=== PATIENT | female | born 1985 | race Caucasian/White ===

== ENCOUNTER 2019-11-28 13:15 | Outpatient (CLI) | payer OTHER, SELFPAY ==
--- NOTE | ~2019-11-28 | MMUS_ITS ---
EXAMINATION: MM diagnostic stan BI w rhett, US breast LT complete HISTORY: Left breast pain. Patient recently nursing. TECHNIQUE: Additional 3-D tomosynthesis images of were performed and synthetic 2-D images were genera yajaira. CAD analysis was submitted and interpreted. High resolution left breast ultrasound was performed . COMPARISON: None FINDINGS: MAMMOGRAPHIC FINDINGS: The breasts are extremely dense, which lowers the sensitivity of mammography. There are no suspicious masses, calcifications or architectural distortion in either breast to suggest malignancy. ULTRASOUND: Normal heterogeneous echotexture of the left breast without focal solid or cystic mass. IMPRESSION: 1. No mammographic or sonographic evidence for malignancy. BI-RADS CATEGORY 1 - NEGATIVE Reviewed, dictated and finalized at location A. MATION TENDER IMPRESSION: 1. No mammographic or sonographic evidence for malignancy. BI-RADS CATEGORY 1 - NEGATIVE
== END 2019-11-28 13:16 | disposition home or self-care (01) ==
PROVIDERS: PCP Family Medicine; Visit Provider Family Medicine
DX: N64.4 Mastodynia (principal)
CPT/HCPCS: 76641; 77062; 77066; G0279

== ENCOUNTER 2020-08-28 06:52 | Outpatient (NON) | payer OTHER, SELFPAY ==
[2020-08-31 17:04] LABS: SARS-CoV-2 RNA PCR Negative
== END 2020-08-28 06:53 ==
LOC: ANHCOVIDDT 07:04
PROVIDERS: PCP Family Medicine; Visit Provider Internal Medicine
DX: Z20.828 Contact with and (suspected) exposure to other viral communicable diseases (principal); R09.89 Other specified symptoms and signs involving the circulatory and respiratory systems
CPT/HCPCS: 87635; C9803; U0003

== ENCOUNTER 2021-04-25 10:21 | Emergency (ER) | payer OTHER, SELFPAY ==
[2021-04-25 10:30] VITALS: BP 119/74; PULSE 118; RESP 16; TEMP 36.8; O2SAT 100
--- NOTE | 2021-04-25 10:49 | ED.URI ---
HPI - URI/Sore Throat General Chief Complaint: Upper Respiratory Infection Stated Complaint: sinus issues/jaw pain/teeth pain/ear pain Source: patient and RN notes reviewed Mode of arrival: ambulatory History of Present Illness HPI Narrative: This is a 35-year-old female presented to urgent care with complaints of nasal and ear congestion congestion with a runny nose mucous clear in color. According to patient approximately April 11 visited her JUNIOR ACCOUNTING CLERK who instructed her to use [id number] congestion and sinus medication for her sinus issues. Patient notes that her condition has worsened and that her cough has resolved but she continues to have a runny nose with clear fluid in her ears in head feels congested. The patient denies SOB, CP, palpitation, extremity numbness, lightheadedness, dizziness, constipation, diarrhea, chills, or fever. Patient is in her first trimester of I instructed her that she will need a antibiotic call pharmacy to verify safety of the fetus I also instructed the patient to notify her WATER PUMPER need to see if the medication will not harm her fetus. She agrees MD elicited complaint: rhinorrhea, nasal congestion and sinus pain Related Data Home Medications Medication Instructions Recorded Confirmed cetirizine [Zyrtec] 10 mg PO DAILY 08/23/19 04/25/21 multivitamin 1 tablet PO DAILY 08/23/19 04/25/21 hydrocortisone 5 mg tablet 7.5 mg PO DAILY tablet 03/16/20 04/25/21 magnesium citrate 125 mg capsule 125 mg PO DAILY 03/16/20 04/25/21 doxylamine-pyridoxine (vit B6) 1 tablet PO PRN PRN 04/25/21 04/25/21 [Abbya] Allergies Allergy/AdvReac Type Severity Reaction Status Date / Time esomeprazole Allergy Unknown Anxiety Verified 04/25/21 10:31 levofloxacin Allergy Unknown Joint pain Verified 04/25/21 10:31 chapo Allergy Unknown Hives Verified 04/25/21 10:31 propranolol AdvReac Intermediate rage, Verified 04/25/21 10:31 insomnia, joint and muscle aches. Review of Systems Review of Systems: Narrative: A 14 organ system Review of Systems was performed and pertinent positives included in the HPI, otherwise remaining ROS is negative. All systems reviewed & are unremarkable except as noted in HPI and below PMFSH Past Medical History Medical History (Updated 07/22/21 @ 11:06 by LAYNE Green) Frequent loose stools H. pylori infection Joint stiffness of multiple sites POTS (postural orthostatic tachycardia syndrome) Recurrent urticaria Seasonal allergies Surgical History Surgical History No significant past surgical history 2008 Family History Family History Mother Hypertension Family history of thyroid disease Family history of cardiovascular disease Father Family history of thyroid disease Grandparent Family history of thyroid disease Diabetes mellitus Hypertension Asthma Family history of cardiovascular disease Family history of malignant neoplasm of cervix Social History Social History Smoking status: Never smoker Second hand tobacco smoke exposure: No Alcohol intake: never Substance use: never Substance use type: does not use Gender identity (if verbalized by the patient): Female Exam Narrative: Exam Narrative: GENERAL: This is a well-nourished, well-developed patient, in no apparent distress. HEAD: normocephalic, atraumatic. maxillary area tenderness with palpation EYES: PERRL. Sclera clear/white. Vision is grossly intact. EARS: External ears normal, auditory canals clear and without drainage, TMs normal without perforation. Hearing grossly intact. NOSE: External nose normal with no obvious nasal discharge, nares without redness, no rhinorrhea. THROAT: Mucous membranes moist, posterior pharynx clear. NECK: Neck supple, non-tender without lymphadenopathy, masses or t
== END 2021-04-25 11:18 | disposition home or self-care (01) ==
PROVIDERS: Emergency Provider Nurse Practitioner; PCP Family Medicine
DX: J32.9 Chronic sinusitis, unspecified (principal)
CPT/HCPCS: 99213; G0463

== ENCOUNTER 2021-09-03 17:43 | Emergency (ER) | payer OTHER, SELFPAY ==
[2021-09-03 17:48] VITALS: BP 122/68; PULSE 102; RESP 16; TEMP 36.6; O2SAT 99
--- NOTE | 2021-09-03 17:51 | ED.URI ---
HPI - URI/Sore Throat General Chief Complaint: Upper Respiratory Infection Stated Complaint: COLD SYMPTOMS Time Seen by Provider: 09/03/21 17:51 Source: patient, RN notes reviewed and old records reviewed Mode of arrival: ambulatory Limitations: no limitations History of Present Illness HPI Narrative: 35-year-old female presents to the [facility] with complaints of sinus congestion, sneezing. Patient reports symptoms since 22 August, 12 days ago Patient is 35 weeks , tried calling OB was referred to the [facility] for her sinus pressure. MD elicited complaint: rhinorrhea, nasal congestion and sinus pain Related Data Home Medications Medication Instructions Recorded Confirmed cetirizine [Zyrtec] 10 mg PO DAILY 08/23/19 05/08/21 multivitamin 1 tablet PO DAILY 08/23/19 05/08/21 doxylamine-pyridoxine (vit B6) 1 tablet PO PRN PRN 04/25/21 05/08/21 [Bonjesta] hydrocortisone 5 mg tablet 10 mg PO DAILY tablet 05/08/21 05/08/21 fludrocortisone mg 09/03/21 Allergies Allergy/AdvReac Type Severity Reaction Status Date / Time esomeprazole Allergy Unknown Anxiety Verified 05/08/21 16:13 levofloxacin Allergy Unknown Joint pain Verified 05/08/21 16:13 chapo Allergy Unknown Hives Verified 05/08/21 16:13 propranolol AdvReac Intermediate rage, Verified 05/08/21 16:13 insomnia, joint and muscle aches. Review of Systems Review of Systems: All systems reviewed & are unremarkable except as noted in HPI and below Constitutional: Constitutional: Reports no additional constitutional complaints, Denies chills and Denies fever(s) Eyes: Eyes: Reports no additional eye complaints ENT: Reports as per HPI, Denies dysphagia, Denies dizziness, Denies epistaxis, Reports nasal congestion and Denies sore throat Cardiovascular: Cardiovascular: Reports no additional cardiovascular complaints and Denies chest pain Respiratory: Respiratory: Reports no additional respiratory complaints, Denies cough, Denies dyspnea and Denies wheezing Gastrointestinal: Gastrointestinal: Reports no additional gastrointestinal complaints, Denies abdominal pain, Denies nausea and Denies vomiting Musculoskeletal: Musculoskeletal: Reports no additional musculoskeletal complaints Integumentary/Breasts: Skin/Breast: Reports system reviewed and no additional complaints, except as docu Neurologic: Reports system reviewed and no additional complaints, except as documented Psychiatric: Psychiatric: Reports no additional psychiatric complaints Allergic/Immunologic: Allergic/Immunologic: Reports no additional allergic/immunologic complaints [facility] Past Medical History Medical History Frequent loose stools H. pylori infection Joint stiffness of multiple sites POTS (postural orthostatic tachycardia syndrome) Recurrent urticaria Seasonal allergies Sleep paralysis Surgical History Surgical History No significant past surgical history 2009 Family History Family History Mother Hypertension Family history of thyroid disease Family history of cardiovascular disease Father Family history of thyroid disease Grandparent Family history of thyroid disease Diabetes mellitus Hypertension Asthma Family history of cardiovascular disease Family history of malignant neoplasm of cervix Social History Social History Smoking status: Never smoker Second hand tobacco smoke exposure: No Alcohol intake: never Substance use: never Substance use type: does not use Gender identity (if verbalized by the patient): Female Comments At the time of my signature, I reviewed and agree with the nursing past medical, surgical, social, and family history. There is no relevant family history pertinent to the patient complaint. Exam Const: General:
[2021-09-03 17:52] VITALS: BP 122/68; PULSE 102; RESP 16; TEMP 36.6; O2SAT 99
== END 2021-09-03 18:02 | disposition home or self-care (01) ==
PROVIDERS: Emergency Provider Nurse Practitioner; PCP Family Medicine
DX: J32.9 Chronic sinusitis, unspecified (principal)
CPT/HCPCS: 99213; G0463

== ENCOUNTER 2023-02-18 22:56 | Emergency (ER) | payer OTHER, SELFPAY ==
[2023-02-18 22:53] VITALS: BP 132/76; PULSE 102; RESP 17; TEMP 36.8; O2SAT 100
[2023-02-18 23:08] VITALS: PULSE 95; RESP 17; O2SAT 100
[2023-02-18 23:27] VITALS: PULSE 95; RESP 17; O2SAT 100
[2023-02-18 23:34] VITALS: PULSE 101; RESP 19; O2SAT 100
[2023-02-18 23:45] VITALS: PULSE 94; RESP 13; O2SAT 100
[2023-02-18 23:46] VITALS: BP 125/69; PULSE 98; RESP 13; O2SAT 100
[2023-02-19] VITALS (28 sets, daily range): BP systolic 109–125; BP diastolic 63–87; PULSE 85–109; RESP 12–22; O2SAT 96–100
[2023-02-19] MEDS: FAMOTIDINE 20 MG/2 ML VIAL IV PUSH
[2023-02-19] MEDS: HYDROCORTISONE SODIUM SUCCINATE 100 MG/2 ML VIAL 20 MG IV PUSH
[2023-02-19] MEDS: ONDANSETRON INJ 4 MG/2 ML VIAL IV PUSH (00:01)
[2023-02-19] MEDS: SODIUM CHLORIDE 0.9% IV 2,000 ML 999 ML IV CONT (00:02)
--- NOTE | 2023-02-19 01:18 | ECG_ITS ---
Measurements Intervals [place] Rate: 94 P: 53 CO: 149 QRS: 75 QRSD: 78 T: 36 QT: 353 QTc: 443 Interpretive Statements SINUS RHYTHM NORMAL ECG NO PREVIOUS ECG AVAILABLE FOR COMPARISON Electronically Signed On 02-19-2023 7:44:24 CDT by Benigno Howell D.O.
[2023-02-19 01:42] LABS: Basophils Percent Auto 0.2 % (0.2-1.2); Eosinophils Percent Auto 0.1 % (0-4.4); Hemoglobin 12.6 g/dL (12.0-15.0); Immature Granulocyte Absolute 0.04 K/mm3 (0.00-0.031); Immature Granulocyte Percent A 0.3 % (0-0.5); Lymphocytes Absolute Auto 0.62 K/mm3 (0.9-3.2); Lymphocytes Percent Auto 5.1 % (18.3-44.2); Mean Corpuscular HGB Conc 34.1 g/dl (32-36); Mean Corpuscular Hemoglobin 30.2 pg (26-34); Mean Corpuscular Volume 88.7 fl (80-100); Mean Platelet Volume 8.6 fl (7.4-10.4); Monocytes Absolute Auto 0.5 K/mm3 (0.1-0.6); Neutrophils Absolute Auto 11.1 K/mm3 (1.3-6.7); Neutrophils Percent Auto 90.3 % (45.5-73.1); Platelet Count Result 266 k/mm3 (150-375); Red Blood Count 4.17 M/mm3 (4.2-5.4); Red Cell Distribution Width 12.9 % (11.5-14.5); White Blood Count 12.3 K/mm3 (4.5-10.0)
[2023-02-19 01:43] LABS: Appearance Urine Clear (Clear); Bilirubin Urine Negative (Negative); Blood Urine Negative (Negative); Color Urine Yellow (Yellow); Glucose Urine UA Negative (Negative); Ketones Urine Negative (Negative); Leukocyte Esterase Ur Negative LEU/UL (Negative); Nitrate Urine Negative (Negative); Protein Urine Negative (Negative); Specific Grav Ur 1.021 (1.001-1.035); Urobilinogen Urine 0.2 mg/dL (<2.0)
[2023-02-19 01:49] LABS: Add Urine Microscopic? NO
[2023-02-19 02:12] LABS: Alanine Aminotransferase 21 U/L (6-35); Albumin Level 3.8 g/dL (3.5-5.1); Alkaline Phosphatase 54 U/L (38-126); Anion Gap 5 mmol/L (8-16); Aspartate Amino Transferase 26 U/L (14-36); Bilirubin,Total 0.7 mg/dL (0.2-1.3); Blood Urea Nitrogen 16 mg/dL (7-17); Calcium 7.5 mg/dL (8.4-10.2); Carbon Dioxide 27 mmol/L (22-30); Chloride 106 mmol/L (98-107); Estimated Glomerular Filt Rate > 60; Glucose 97 mg/dL (65-110); Lipase 133 U/L (23-300); Magnesium 1.7 mg/dL (1.6-2.3); Potassium 3.8 mmol/L (3.4-5.0); Sodium 138 mmol/L (137-145)
[2023-02-19 02:19] LABS: Influenza A QL RT-PCR Negative (Negative); Influenza B QL RT-PCR Negative (Negative); RSV RNA, RT-PCR Negative (Negative); SARS-CoV-2 RNA PCR Negative (Negative)
--- NOTE | 2023-02-19 03:17 | ED.GENADULT ---
HPI - General Adult General Chief complaint: Nausea/Vomiting/Diarrhea Stated complaint: N/V/D Time Seen by Provider: 02/18/23 23:12 History of Present Illness HPI narrative: This is a 37-year-old female presenting ED with a chief complaint of nausea vomiting diarrhea. Started early this morning. Associated with crampy diffuse abdominal pain that has been getting better. She denies fevers, chest pain difficulty breathing or urinary symptoms. The patient has adrenal insufficiency and typically takes hydrocortisone 3 times daily at 15 mg, 10 mg and 5 mg. She tried to take a stress dose of 20 mg and was unable to keep it down without vomiting. Related Data Home Medications Medication Instructions Recorded Confirmed cetirizine 10 mg tablet (Zyrtec) 10 mg PO DAILY 08/23/19 05/08/21 multivitamin 1 tablet PO DAILY 08/23/19 05/08/21 doxylamine 20 mg-pyridoxine 20 mg 1 tablet PO PRN PRN Nausea 04/25/21 05/08/21 tablet,immediate and delayed release (Bonjesta) hydrocortisone 5 mg tablet 10 mg PO DAILY 05/08/21 05/08/21 fludrocortisone 0.1 mg tablet mg 09/03/21 Allergies Allergy/AdvReac Type Severity Reaction Status Date / Time esomeprazole Allergy Unknown Anxiety Verified 02/18/23 23:02 levofloxacin Allergy Unknown Joint pain Verified 02/18/23 23:02 chapo Allergy Unknown Hives Verified 02/18/23 23:02 propranolol AdvReac Intermediate rage, Verified 02/18/23 23:02 insomnia, joint and muscle aches. [facility] Past Medical History Medical History Frequent loose stools H. pylori infection Joint stiffness of multiple sites POTS (postural orthostatic tachycardia syndrome) Recurrent urticaria Seasonal allergies Sleep paralysis Surgical History Surgical History No significant past surgical history 2009 Family History Family History Mother Hypertension Family history of thyroid disease Family history of cardiovascular disease Father Family history of thyroid disease Grandparent Family history of thyroid disease Diabetes mellitus Hypertension Asthma Family history of cardiovascular disease Family history of malignant neoplasm of cervix Social History Social History Smoking status: Never smoker Second hand tobacco smoke exposure: No Alcohol intake: never Substance use: never Substance use type: does not use Living arrangements: with family Occupation/Education: occupation Gender identity (if verbalized by the patient): Female Exam Narrative: APPEARANCE: No apparent distress. Head: atraumatic. EYES: EOMI, NOSE: Atraumatic NECK: Trachea midline RESPIRATORY: No increased rate of breathing auscultation CARDIOVASCULAR: RRR, no peripheral edema ABDOMINAL: Non-distended soft nontender no guarding or rebound MUSCULOSKELETAl: No obvious deformities NEURO: Alert. Moving 4/4 extremities SKIN:: Warm, dry. Normal color PSYCHIATRIC: Normal affect Course Vital Signs Vital signs: Vital Signs Temperature 98.2 F 02/18/23 22:53 Pulse Rate 102 H 02/18/23 22:53 Respiratory Rate 17 02/18/23 22:53 Blood Pressure 132/76 02/18/23 22:53 Pulse Oximetry 100 02/18/23 22:53 Oxygen Delivery Room Air 02/18/23 22:53 Temperature 98.2 F 02/18/23 22:53 Pulse Rate 98 02/19/23 02:00 Respiratory Rate 15 02/19/23 02:00 Blood Pressure 124/74 02/19/23 02:00 Pulse Oximetry 98 02/19/23 02:00 Oxygen Delivery Room Air 02/18/23 22:53 Medical Decision Making MDM Narrative Medical decision making narrative: -Presentation: 37-year-old female with renal insufficiency presenting with nausea vomiting diarrhea. -DDX includes but is not limited to: Gastroenteritis, viral syndrome, nausea and vomiting -Co-morbidities complicating care:
== END 2023-02-19 04:42 | disposition home or self-care (01) ==
PROVIDERS: Emergency Provider Emergency Medicine; PCP Emergency Medicine
DX: K52.9 Noninfective gastroenteritis and colitis, unspecified (principal); E27.40 Unspecified adrenocortical insufficiency; E86.0 Dehydration; Z20.822 Contact with and (suspected) exposure to COVID-19
CPT/HCPCS: 36415; 80053; 81003; 81025; 83690; 83735; 85025; 87637; 93005; 96361; 96374; 96375; 99284; J1720; J2405; J7030

== ENCOUNTER 2025-05-05 12:54 | Outpatient (CLI) | payer OTHER, SELFPAY ==
--- NOTE | ~2025-05-05 | CT_ITS ---
Non-contrast CT scan of the Abdomen and Pelvis Clinical indication: Adrenal cortical insufficiency Technique: 2.5 mm axial scans were obtained through the abdomen and pelvis without intravenous or or al contrast. Dose reduction technique was used on this scan by utilizing automated exposure control a nd iterative reconstruction technique. The dose-length product (DLP) was 557.23 mGy-cm. Findings: Images through the lung bases reveal no abnormalities. There is diffuse hepatic steatosis. Small calcified gallstones are present. The kidneys, spleen, panc reas, and adrenals appear normal. There is no aortic aneurysm. There is no evidence of bowel obstruction. Images through the pelvis were performed. There is no evidence of ascites or lymphadenopathy. Urinary bladder unremarkable. No pelvic mass evident. Impression: Diffuse hepatic steatosis. Cholelithiasis. Reviewed, dictated and finalized at [facility]. Impression: Diffuse hepatic steatosis. Cholelithiasis.
== END 2025-05-05 12:55 | disposition home or self-care (01) ==
LOC: MICIMG 12:55
PROVIDERS: PCP Internal Medicine
DX: E27.40 Unspecified adrenocortical insufficiency (principal)
CPT/HCPCS: 74176

== ENCOUNTER 2025-05-05 12:59 | Outpatient (CLI) | payer OTHER, SELFPAY ==
--- NOTE | ~2025-05-05 | XR_ITS ---
Lumbosacral Spine: AP and lateral views Clinical History: Pain Findings: The normal lordotic curve is maintained. The vertebral bodies and posterior elements are i ntact. The intervertebral disc spaces are preserved. The sacroiliac joints are normally outlined. Impression: No significant abnormality. Reviewed, dictated and finalized at [facility]. Impression: No significant abnormality.
== END 2025-05-05 13:00 | disposition home or self-care (01) ==
PROVIDERS: PCP Internal Medicine; Visit Provider Internal Medicine
DX: M54.50 Low back pain, unspecified (principal)
CPT/HCPCS: 72100

== ENCOUNTER 2025-07-27 09:09 | Outpatient (CLI) | payer OTHER, SELFPAY ==
--- NOTE | ~2025-07-27 | MM_ITS ---
EXAMINATION: MM screening stan BI w rhett HISTORY: Screening. Prior history of bilateral reduction surgery. TECHNIQUE: Craniocaudal and mediolateral oblique 3-D tomosynthesis images were obtained and synthetic 2-D images were generated. CAD analysis was submitted and interpreted. COMPARISON: 11/28/2019 BREAST PARENCHYMAL COMPOSITION: The breasts are heterogeneously dense, which may obscure small masses. FINDINGS: There is no evidence of suspicious mass, calcification, or architectural distortion to suggest malignancy in either breast. IMPRESSION: 1. No mammographic evidence of malignancy. 2. Recommend routine screening mammography in one year. BI-RADS Category 1: Negative Reviewed, dictated and finalized at location B.
--- OUTSIDE RECORDS SUMMARY | 2025-07-27 09:37 | XMS_ITS | Encounter Summary ---
Author Organization [facility] Address [address] [place] [address] Phone Care Team Providers Care Ham Clerk Name Role Phone Chan Whitfield MD Primary Care Provider Celena Cade DO Primary Care Provider + [phone] Chan Whitfield MD Primary Care Provider Celena Cade DO Primary Care Provider + [phone] No, Physician Primary Care Provider [phone] Leticia Stevens MD Primary Care Provider + [phone] Aye Muhammad MD Primary Care Provi sujatha Leticia Stevens MD Unavailable [phone] Wai Thorne MD Primary Care Provider [phone] Johanne Childers NP Primary Care Provider + [phone] Daniela Matt MD Primary Care Provider [phone] Encounter Details Date Type Department Care Team (Latest Contact Info) Description 06/30/2017 Orders Only [facility] CONVERSION Scanning, Provider Social History Tobacco Use Types Packs/Day Years Used Date Smoking Tobacco: Never Assessed Alcohol Use Standard Drinks/Week Comments Yes 0 (1 standard drink = 0.6 oz pur e alcohol) Comments Unknown Sex and Gender Information Value Date Recorded Sex Assigned at Not on file Legal Sex Female 2:38 AM [employer]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 Gender Identity Not on file Sexual Orientation Not on file documented as of this encounter Plan of Treatment Not on file documented as of this encounter Procedures Procedure Name Priority Date/Time Associated Diagnosis Comments OBSTETRIC/GYNECOLOGY ULTRASONOGRAPHY REPORT 06/30/2017 2:30 PM CDT documented in this encounter Results * OBSTETRIC/GYNECOLOGY ULTRASONOGRAPHY REPORT (06/30/2017 2:30 PM CDT) Anatomical Region Laterality Modality Ultrasound us Provider Scanning IMG OB US PROCEDURES Final Res ult documented in this encounter Visit Diagnoses Not on filedocumented in this encounter Additional Health Concerns Infection Onset Date Last Indicated Resolved Time COVID: Suspected 12/16/2022 12/16/2022 12/16/2022 4:10 PM CDT COVID: Suspected 12/16/2022 12/16/2022 12/16/2022 8:36 PM CDT COVID: Suspected 03/11/2025 03/11/2025 03/11/2025 12:57 PM CDT documented as of this encounter Care Teams Ham Clerk Relationship Specialty Start Date End Date Chan Whitfield MD [address] [address] PCP - General 06/30/17 06/30/17 Celena Cade DO [address] [address] PCP - General 07/01/17 07/20/17 Chan Whitfield MD [address] [address] PCP - General 07/21/17 11/25/17 Celena Cade DO [address] [address] PCP - General 11/26/17 01/24/18 No, Physician PCP - General 01/25/18 01/11/19 Leticia Stevens MD PCP - General Family Practice 01/12/19 12/10/20 Aye Muhammad MD [address] [place] [id number] PCP - General Family Medicine 12/11/20 07/22/21 Wai Thorne MD [address] [place] [address] PCP - General Family Medicine 08/21/23 12/01/23 Johanne Childers, ANDERS [address] [place] [address] PCP - General Nurse Practitioner 12/02/23 05/09/24 Daniela Matt MD [address] [facility] [address] [place] [address] PCP - General Internal Medicine 05/10/24 Leticia Stevens MD Family Practice 12/11/20 documented as of this encounter
--- OUTSIDE RECORDS SUMMARY | 2025-07-27 09:37 | XMS_ITS | Clinical Summary ---
Author Organization [address] Address [address] [place] [id number] Care Team Providers Care Motorized Squad Sergeant Name Role Phone Leticia Stevens MD Unavailable [phone] Dainela Matt MD Primary Care Provider [phone] Allergies Active Allergy Reactions Criticality Noted Date Comments Atenolol Other (See comments) Low 02/26/2022 Beta-Blockers (Beta-Adrenergic Blocking Agts) Other (See comments) Low 02/26/2022 Esomeprazole Itching,Anxiety,Ment al status changes Medium 08/18/2014 Lanolin Rash Medium 09/18/2021 Levofloxacin Other (See comments),Muscle pain,Joint pain Medium 09/20/2018 Achilles tendon Omeprazole Other (See comments) Low 07/08/2024 Propranolol Other (See comments) Low 02/26/2022 Faisal Hives,Itching Medium Medications multivitamin tabletIndicatio ns:Vitamin Deficiency Prevention Take 1 tablet by mouth Active cetirizine (ZyrTEC) 10 mg tablet Take 1 tablet (10 mg total) by mouth daily Active fludrocortisone 0.1 mg tablet TAKE1/2 TO 1 TABLET EVERY MORNING NEEDED 1 Active hydrocortisone (CORTEF) 5 mg tablet PLEASE SEE ATTACHED FOR DETAILED DIRECTIONS 1 Active Lo Loestrin Fe 1 mg-10 mcg (24)/10 mcg (2) tablet per tablet Take 1 tablet by mouth daily Active benzonatate (TESSALON) 200 mg capsuleIndicati ons:Viral sinusitis Take 1 capsule (200 mg total) by mouth 3 (three) times a day as needed for cough 30 capsule Active Active Problems Problem Noted Date Diagnosed Date related fatigue in third trimester 01/2024 Vaginal delivery 07/08/2024 Mixed hyperlipidemia 05/11/2024 Allergic rhinitis due to pollen 05/02/2024 Low back pain 05/02/2024 Snoring 12/04/2023 Overview (12/04/2023): -she was supposed to have a sleep study but never completed -she has sleep paralysis -recent breast reduction about three weeks ago and she was told she most likely has sleep apnea when she was waking up from anesthesia - tells her she snores -she has caught herself gasping before Sleep study ordered. Adrenal insufficiency 08/21/2023 Overview (12/04/2023): -she is requesting a new certified health education specialist, currently at [facility] -diagnosed in 2019 -hydrocortisone 20mg daily and fludrocortisone 0.1mg daily -she currently feels well managed Endocrine referral placed. Fourth degree perineal laceration 10/22/2021 Low serum cortisol level 08/14/2021 , supervision, high-risk 08/12/2021 care of multigravida, antepartum 2020 Dense breast tissue on mammogram 12/20/2019 Breast lump on left side at 12 o'clock position 12/08/2019 Reactive thrombocytosis 11/23/2019 Lightheadedness 06/30/2019 PVC (premature ventricular contraction) 03/03/20 18 POTS (postural orthostatic tachycardia syndrome) 02/03/2018 History of pre-eclampsia 02/03/2018 Palpitations 02/03/2018 Encounters Date Type Department Care Team Description 05/11/2025 Orders Only [facility] Endocrinology Metabolism and Lipid [address] [facility] [address] [place] [address] [place] [address] ProviderDavid MD 05/02/2025 Telephone [facility] Endocrinology Metabolism and Lipid [address] [facility] [address] [place] [address] [place] [address] Mariely Barrera, occupational therapy instructor from Last 3 Months Surgical History Surgery Date Site/Laterality Comments BREAST BIOPSY Left x2 REDUCTION MAMMAPLASTY Medical History Medical History Date Comments Hx Other Medical palptations Hx Other Medical Diverticulitis Hx Other Medical Chronic Anxiety Hx Other Medical seasonal allerg ies Hx Other Medical POTS 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 Hypothyroidism 2020 Family History Medical History Relation Name Comments Depression Brother pvc Brother Anxiety disorder Daughter Thyroid disease Father Rock Valvular heart disease Maternal Grandfather Valvular Heart Disease; Valvular heart disease Maternal Grandmother Valvular Heart Disease; Atrial fibrillation Mother Aspen Mitral valve prolapse Mother Aspen Thyroid disease Mother Aspen Valvular heart disease Mother Aspen Mtzu lar Heart Disease; Relation Name Status Comments Brother Alive Daughter Alive Father Rock Alive Maternal Grandfather Alive Maternal Grandmother Alive Mother Aspen Alive Sister Alive Son Alive Social History Tobacco Use Types Packs/Day Years Used Date Smoking Tobacco: Never Smokeless Tobacco: Never Tobacco Cessation:Counseling Given: Not Answered Alcohol Use Standard Drinks/Week Comments No 0 (1 standard drink = 0.6 oz pur e alcohol) AUDIT-C Answer Date Recorded Q1: How often do you have a drink containing alc ohol? Monthly or less 12/02/2023 Average Number of Drinks Not on file 024 Frequency of Binge Drinking Not on file 11/06 PHQ-2 Answer Date Recorded PHQ-2 Total Score (If total score is 3 or more points, staff should administer the PHQ-9) 0 12/04/2023 Personal Safety Answer Date Recorded Have you ever been in or are you currently in a harmful physical or emotional relationship or is someone making you feel afraid or unsafe? 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 Gender Identity Not on file Sexual Orientation Not on file Obstetrics History Para Term AB IAB SAB Ectopic Multiple Livin g Live Births 1 Date Outcome GA Total Labor Labor/2nd/3rd Weight Sex Type Anes PTL Afshan A1 A5 Name Clin Last Filed Vital Signs Vital Sign Reading Time Taken Comments Blood Pressure 119/85 03/11/2025 12:33 PM CDT Pulse 110 03/11/2025 12:33 PM CDT Temperature 36.5 C (97.7 F) 03/11/2025 12:33 PM CDT Respiratory Rate 18 03/11/2025 12:33 PM CDT Oxygen Saturation 98% 03/11/2025 12:33 PM CDT Inhaled Oxygen Concentration - - Weight 73.5 kg (162 lb) 03/11/2025 12:33 PM CDT Height 162.6 cm (5' 4) 02/15/2025 12:37 PM CDT Body Mass Index 27.81 02/15/2025 12:37 PM CDT Plan of Treatment Health Maintenance Due Date Last Done Comments Cervical Cancer Screening 1986 Hepatitis C Screening 1985 Varicella Vaccines (1 of 2 - 13+ 2-dose series) 1999 HPV Vaccines (1 - 3-dose SCDM series) 2013 Depression Screening 12/02/2024 12/02/2023, 12/02/19 24 Regular Well Visit/Exam 18-64 12/02/2024 12/02/2023 Covid-19 Vaccine (2024- season) 2025 06/25/2023, 07/10/2021, 12/27/2020, Additional history exists Influenza Vaccine (#1) 2025 , 07/19/2021, 07/14/2017, Additional history exists DTaP/Tdap/Td Vaccine (8 - Td or Tdap) 10/05/2031 10/05/2021, 09/06/2021, 03/23/1992, Additional history exists Hepatitis B Screening Completed 02/23/1997 , 11/30/1996, 08/18/1996 Pneumococcal vaccine <65 Aged Out 10/05/2014 No longer eligible based on patient's age to complete this topic Procedures Procedure Name Priority Date/Time Associated Diagnosis Comments 21 HYDROXYLASE ANTIBODY Routine 06/20/2025 7:[address] ABDOMEN PELVIS WO CONTRAST Schedule Routine, Read Routine (OP Routine) 05/05/2025 12:20 PM CDT from Last 3 Months Results * 21 HYDROXYLASE ANTIBODY (06/20/2025 7:49 AM CDT) 21 HYDROXYLASE ANTIBODY NEGATIVE NEGATIVE [facility], 06/20/2025 7:49 AM CDT 06/20/2025 7:50 AM CDT Narrative [facility] - 06/29/2025 3:47 PM CDT FASTING:YES FASTING: YES Shiva Morales MD LAB BLOOD O RDERABLES Final Result [facility] [place] [address] [place] [address] * CT Abdomen Pelvis WO Contrast (05/05/2025 12:20 PM CDT) Anatomical Region Laterality Modality Body N/A Computed Tomogra phy Historical Provider IMMarkos CT PROCEDURES Final R esult from Last 3 Months Insurance [facility] Care Teams Motorized Squad Sergeant Relationship Specialty Start Date End Date Daniela Matt MD [address] [id number] PCP - General Internal Medicine 05/10/24 Leticia Stevens MD Family Practice 12/11/20
--- OUTSIDE RECORDS SUMMARY | 2025-07-27 09:37 | XMS_ITS | Clinical Summary ---
Author Organization [facility] Address [address] [place] [address] Care Team Providers Care Production Support Analyst Name Role Phone Camila Villafuerte MD Primary Care Provider [phone] Allergies Active Allergy Reactions Criticality Noted Date Comments Atenolol Other (See Comments) Low 02/26/2022 Esomeprazole Anxiety,Itching,Othe r (See Comments) Medium 08/18/2014 Lanolin Rash Medium 09/18/2021 Levofloxacin Other (See Comments),Muscle Pain Medium 09/20/2018 Achilles tendon Achilles tendon Propranolol Other (See Comments) Low 02/26/2022 Faisal Hives,Itching High 12/08/2019 Medications Cetirizine 10 mg Capsule Take 10 mg by mouth. Active fludrocortisone (FLORINEF) 0.1 mg tablet 0.2 mg daily. 1 Active hydrocortisone (CORTEF) 5 mg TabletIndicatio ns:taking 2 pills in Am and 1 pill in the afternoon 1 pill before dinner Take 1 Tablet (5 mg) by mouth every 8 hours. Take 2 tablets in AM, take 2 tablets in afternoon and take 1 tablet at bedtime 150 Tablet 1 Active multivitamin (Multiple Vitamins) tablet Take 1 Tablet by mouth daily. Active norethindrone Ac-Eth estradiol (Loestrin 10/24, ,) 1-20 mg-mcg tablet Take 1 Tablet by mouth daily. 84 Tablet 3 5 Active Active Problems Patient Care Coordination No te Formatting of this note migh t be different from the original. Primary Care: Leticia Loya MD Referring Provider: Jc Goss MD [address] [facility] [address] [place] [address] Other: Dr. Marguerite Bell MD Problem Noted Date Diagnosed Date At increased risk of breast cancer 09/22/2023 Overview (09/22/2023): Greater than 20% lifetime risk of developing breast cancer.Sumayaer-zick Breast Cancer Risk Calculation-Remaining Lifetime Breast Cancer Risk 22.8%, 5-year breast cancer risk: 0.7% %. Her Myriad BREAST CANCER RISKSCORE: REMAINING LIFETIME RISK 39.4% . 1.3% 5 -year Risk for Breast Cancer. Based on an analysis of her genetic markers combined with her personal and family history data. September 2023. Family history of breast cancer in female 2022 Family history of uterine cancer 08/12/2023 Family history of ovarian cancer 08/12/2023 Genetic testing 08/12/2023 Overview (09/22/2023): NEGATIVE genetic testing. The patient underwent the myriad my risk genetic testing for hereditary cancer syndromes due to a maternal family history of a maternal aunt with premenopausal breast cancer. She also had a paternal family history of ovarian cancer and uterine cancer. The patient tested negative for any deleterious mutations in all 48 genes that were tested. This testing included the genes responsible for HBOC, Tabor syndrome, as well as most other common hereditary cancer syndromes. September 2023. Fourth degree perineal laceration 10/22/2021 , supervision, high-risk 08/12/2021 Adrenal insufficiency 08/12/2021 H/O pre-eclampsia 08/12/2021 care of multigravida, antepartum 2020 Low serum cortisol level 05/31/2021 Dense breast tissue on mammogram 12/20/2019 Breast lump on left side at 12 o'clock position 12/08/2019 Reactive thrombocytosis 11/23/2019 related fatigue in third trimester Vaginal delivery Resolved Problems Problem Noted Date Diagnosed Date Resolved Date Threatened labor 09/18/2021 Mastodynia 12/20/2019 08/12/2021 Fibrocystic breast changes of both breasts 12/20/2019 08/12/2021 Encounters Date Type Department Care Team Description 06/13/2025 External Device Data STL ABSTRACTION Provider, Abstract 06/06/2025 External Device Data STL ABSTRACTION Provider, Abstract 05/23/2025 External Device Data STL ABSTRACTION Provider, Abstract 05/10/2025 External Device Data STL ABSTRACTION Provider, Abstract from Last 3 Months Immunizations Immunization Administration Dates Next Due INFLUENZA VACCINE QUADRIVALENT 6 MOS UP IM 07/19 Family History Medical History Relation Name Comments Cancer Father Nonmelanoma ski n cancers Breast Cancer Maternal Aunt Metastatic Diabetes Maternal Grandfather High Cholesterol Maternal Grandmother Hypertension Maternal Grandmother Heart Disease Maternal Uncle High Cholesterol Mother Breast Cancer Paternal Aunt 4 Ovarian Cancer Paternal Aunt 4 Also possi ble uterine cancer Cancer Paternal Cousin Cervical can cer Heart Disease Paternal Grandfather Ovarian Cancer Paternal Grandmother Colon Cancer Neg Hx Relation Name Status Comments Brother Alive Daughter Alive Father Alive Half-Sister Alive Maternal Aunt Maternal Grandfather Maternal Grandmother Maternal Uncle Mother Alive Paternal Aunt 1 Alive Paternal Aunt 2 Alive Paternal Aunt 3 Alive Paternal Aunt 4 Alive Paternal Cousin Alive Paternal Grandfather Paternal Grandmother Paternal Uncle 1 Alive Paternal Uncle 2 Alive Paternal Uncle 3 Alive Paternal Uncle 4 Alive Son 1 Alive Son 2 Alive Social History Tobacco Use Types Packs/Day Years Used Date Smoking Tobacco: Never Smokeless Tobacco: Never Tobacco Cessation:Counseling Given: Not Answered Alcohol Use Standard Drinks/Week Comments Never 0 (1 standard drink = 0.6 oz pur e alcohol) Comments No Sex and Gender Information Value Date Recorded Sex Assigned at Not on file Legal Sex Female 3:18 PM BREAD ICER Gender Identity Not on file Sexual Orientation Not on file 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 Not on file Not on file Last Filed Vital Signs Vital Sign Reading Time Taken Comments Blood Pressure 122/80 02/24/2025 2:46 PM CDT Pulse 108 10/19/2024 3:05 PM BREAD ICER Temperature 36.7 C (98 F) 10/19/2024 3:05 PM BREAD ICER Respiratory Rate 21 10/02/2021 9:08 AM BREAD ICER Oxygen Saturation 97% 10/19/2024 3:05 PM BREAD ICER Inhaled Oxygen Concentration - - Weight 73.9 kg (163 lb) 02/24/2025 2:46 PM CDT Height 162.6 cm (5' 4) 02/24/2025 2:46 PM CDT Body Mass Index 27.98 02/24/2025 2:46 PM CDT Plan of Treatment Health Maintenance Due Date Last Done Comments Pre-Diabetes and Diabetes Screening 1986 HEPATITIS B VACCINES (1 of 3 - 19+ 3-dose series) 05/2005 HPV VACCINES (1 - 3-dose SCDM series) 2013 DTAP/TDAP/TD VACCINES (1 - Tdap) 10/06/2021 10/05/19 INFLUENZA VACCINE (#1) 2025 07/19/2021 PAP SMEAR 07/06/2026 07/06/2023 CERVICAL CANCER SCREENING 07/06/2028 HPV/Cotest (21-29) 07/06/2028 07/06/2023 HPV/Cotest (30-65) 07/06/2028 07/06/2023 Procedures Procedure Name Priority Date/Time Associated Diagnosis Comments CERV/VAG CYTO AGE BASED SCREEN PAP Routine 07/06/2023 3:11 PM CDT Screening for cervical cancer from Last 3 Months or Most Recently Relevant to Health Maintenance Results * CERV/VAG CYTO AGE BASED SCREEN PAP (07/06/2023 3:11 PM CDT) COMMENT (PAP): [facility] Comment: This order for age-based cervical cancer and STI screening follows ACOG guidelines(PB 168, 140, YHX876). See individual assays for performing site location. CLINICAL INFORMATION [facility] Comment:None given LAST MENSTRUAL PERIOD [facility] Comment:[id number] PREV PAP: [facility] Comment:NONE GIVEN PREV BX: [facility] Comment:NONE GIVEN SOURCE [facility] Comment:Endocervix ADEQUACY: [facility] Comment: Satisfactory for evaluation. Endocervical/transformation zone component present. Age and/or menstrual status not provided PAP INTERP [facility] Comment: Cytology Results: Negative for intraepithelial lesion or malignancy. COMMENT (PAP TEST) [facility] [place] Comment: This case could not be evaluated with computer assisted technology. The slide was manually screened according to routine procedures. BASEBALL INSPECTOR: Fina est Nina- Teo Comment: PAULINA, CT(ASCP) CT screening location: [place] [address] [place] [address] EXPLANATORY NOTE [facility] [place] Comment: EXPLANATORY NOTE: The Pap is a screening test for cervical cancer. It is not a diagnostic test and is subject to false negative and false positive results. It is most reliable when a satisfactory sample, regularly obtained, is submitted with relevant clinical findings and history, and when the Pap result is evaluated along with historic and current clinical information. HPV E6/E7 Not Detected Not Detected [facility] [place] Comment: Methodology: Machine Splitter-Mediated Amplification This assay detects E6/E7 viral messenger RNA (mRNA) from 14 high-risk HPV types (16,18,31,33,35,39,45,51,52,56,58,59,66,68). Cervical sources are required for HPV testing. If a vaginal source from a patient who has had a total hysterectomy with removal of cervix was submitted, please contact the testing laboratory for alternative testing options. For additional information, please refer to http://education.Dispop/faq/EWY349f3 (This link if provided for information/ educational purposes only.) Test Performed at: [facility] [address] [place] [address] Chan Rock PhD SL Genital SWAB OF ENDOCERVIX / Unknown 07/06/2023 3:11 PM CDT 07/06/2023 11:01 PM CDT Anita Vick MD PATHOLOGY/CYTOLOGY ORDERABLES Final Result [facility] [phone] [facility] [place] [address] [place] [address] from Last 3 Months or Most Recently Relevant to Health Maintenance Insurance [employer] CHOICE POS II RX [facility] [employer] Advance Directives For more information, please contact: [phone] * Full Code (Latest Code Status on File) Date Activated Date Inactivated Comments 10/01/2021 4:08 AM 10/02/2021 6:43 PM * Full Code Date Activated Date Inactivated Comments 09/30/2021 4:24 AM 10/01/2021 4:08 AM * Full Code Date Activated Date Inactivated Comments 09/30/2021 12:37 AM 09/30/2021 4:24 AM * Full Code Date Activated Date Inactivated Comments 09/18/2021 10:19 AM 09/18/2021 2:31 PM * Full Code Date Activated Date Inactivated Comments 09/05/2021 4:15 PM 09/05/2021 10:04 PM Care Teams Production Support Analyst Relationship Specialty Start Date End Date Camila Villafuerte MD [address] [place] [phone] PCP - General Family Practice 07/15/21
--- OUTSIDE RECORDS SUMMARY | 2025-07-27 09:37 | XMS_ITS | Clinical Summary ---
Author Organization [facility] Address [address] [place] [address] Care Team Providers Care Environmental Lawyer Name Role Phone Daniela Matt MD Primary Care Provider [phone] Source Comments [facility],non-owned Affiliates and Associated Physician Practices is amultiple site organization consisting of ambulatory clinics and hospital sitesin [place], [place], [place] and [place]. This disclosure is being madepursuant to the Care Everywhere program and may not contain all information available regarding this patient. Last updated 18.[facility] Allergies Active Allergy Reactions Criticality Noted Date Comments Atenolol Other Low 02/26/2022 Lanolin Rash Medium 09/18/2021 Levofloxacin Other 09/20/2018 Achilles tendon Esomeprazole Psychiatric Medium 09/20/2018 Salvia Officinalis Urticaria,Itching High 12/08/2019 Medications * Be aware that medications may not be up to date on this document. Alwaysverify current medications with the patient. mometasone (NASONEX) 50 MCG/ACT nasal spray 12/21/2017 Active cetirizine (ZYRTEC ALLERGY) 10 MG gel capsule Take 10 mg by mouth Active multivitamin (OPURITY) CHEW tablet Take 1 tablet by mouth Active fludrocortisone (Florinef) 0.1 MG tablet 12/03/2019 Active hydrocortisone (Cortef) TABS 12/03/2019 Activ e Multiple Vitamin (Multi-Vitamin) TABS Take 1 (one) tablet by mouth Active Active Problems Problem Noted Date Diagnosed Date Adrenal insufficiency 05/09/2024 Social History Tobacco Use Types Packs/Day Years Used Date Smoking Tobacco: Never Assessed Comments Unknown Sex and Gender Information Value Date Recorded Sex Assigned at Not on file Legal Sex Female 5:41 AM 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 Gender Identity Not on file Sexual Orientation Not on file Last Filed Vital Signs Vital Sign Reading Time Taken Comments Blood Pressure 117/77 05/09/2024 2:35 PM CDT Pulse 89 05/09/2024 2:35 PM CDT Temperature 37.4 C (99.3 F) 09/20/2018 4:27 PM 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 Respiratory Rate 20 09/20/2018 4:27 PM 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 Oxygen Saturation 97% 05/09/2024 2:35 PM CDT Inhaled Oxygen Concentration - - Weight 72.6 kg (160 lb) 05/09/2024 2:35 PM CDT Height - - Body Mass Index - - Plan of Treatment Health Maintenance Due Date Last Done Comments HIV SCREENING 2001 HEPATITIS C SCREENING 09/06/2004 DTAP/TDAP/TD VACCINES (1 - Tdap) 2005 HEPATITIS B VACCINE (1 of 3 - 19+ 3-dose series) 2005 PAP SMEAR 2007 HPV VACCINE (1 - 3-dose SCDM series) 2013 DEPRESSION SCREENING 10/05/2024 COVID-19 VACCINE (1 - 2023-2 5 season) 2025 INFLUENZA VACCINE (#1) 2025 07/19/2021 ZOSTER VACCINE (1 of 2) 2036 HIB VACCINE Aged Out No longer eligi ble based on patient's age to complete this topic MENINGOCOCCAL (Group B) VACC INE SHARED DECISION-MAKING Aged Out No longer eligibl e based on patient's age to complete this topic MENINGOCOCCAL GROUPS A/C/Y/W VACCINE Aged Out No longer eligible b ased on patient's age to complete this topic PNEUMOCOCCAL VACCINE Aged Out No long er eligible based on patient's age to complete this topic Insurance [employer] Care Teams Environmental Lawyer Relationship Specialty Start Date End Date Daniela Matt MD [address] [facility] [address] [place] [address] PCP - General Internal Medicine 05/09/24
== END 2025-07-27 09:10 | disposition home or self-care (01) ==
LOC: ANHFOHIMG 09:11
PROVIDERS: PCP Internal Medicine
DX: Z12.31 Encounter for screening mammogram for malignant neoplasm of breast (principal); Z80.3 Family history of malignant neoplasm of breast
CPT/HCPCS: 77063; 77067

== ENCOUNTER 2025-07-31 08:44 | Outpatient (CLI) | payer OTHER, SELFPAY ==
--- NOTE | ~2025-07-31 | DEXA_ITS ---
Bone Density Report Name: ADEEL ELDRIDGE Age: 39 Sex: Female Ethnicity: White Date of : 1985 Indication: parental hip fracture; history of glucocorticoids; end stage renal disease; Referring Provider: IMANI, TABITHA Study: Bone densitometry was performed. Exam Date: July 31, 2025 Accession number: [id number] Bone Density: Region BMD T-score Z-score Classification AP Spine(L1-L4) 1.047 0.2 Femoral Neck (Left) 0.757 -0.6 Total Hip (Left) 0.908 -0.1 Femoral Neck (Right) 0.801 -0.2 Total Hip (Right) 0.955 0.3 Total Hip Mean 0.931 0.1 World Health Organization criteria for BMD impression classify patients as: Normal (T-score at or above -1.0), Osteopenia (T-score between -1.0 and -2.5), or Osteoporosis (T-score at or below -2.5). 10-year Fracture Risk: FRAX not reported because: Premenopausal woman Clinical Information Provided by Patient: Parent has had a hip fracture Has taken Glucocorticoids Has used the following medications: Vitamin D Has the following medical conditions: adrenal insufficiency Patient maximum height was 64.5 No regular weight bearing exercise Drinks caffeinated beverages Onset of menses at age 14 Premenopausal Number of children 3 Impression: The patient's bone mass is within expected range for age, gender and ethnicity. The patient has risk factors, including: parental hip fracture, history of glucocorticoid therapy. Discussion: BONE DENSITY IS WITHIN EXPECTED LIMITS FOR AGE, SEX AND RACE. Bone density is within expected limits for age, sex and race at all sites measured. The patient should follow a healthful lifestyle (good nutrition with adequate calcium and vitamin D, and appropriate weight-bearing exercise). Follow-Up: Consider repeating this study in 5 years or sooner if there is some new clinical indication. Reported by: CHUCK on 07/31/2025 9:51:00 AM. Reviewed, dictated and finalized at location A.
== END 2025-07-31 08:45 | disposition home or self-care (01) ==
LOC: MICIMG 08:44
PROVIDERS: PCP Internal Medicine; Visit Provider Internal Medicine
DX: Z13.820 Encounter for screening for osteoporosis (principal); Z79.51 Long term (current) use of inhaled steroids
CPT/HCPCS: 77080